=== PATIENT | female | born 1960 | race Caucasian/White ===

== ENCOUNTER 2019-09-09 23:10 | Emergency (ER) | payer BC | END 2019-09-09 23:39 | disposition left against medical advice (07) | LOC: ERS 23:10 | DX: Z53.21 Procedure and treatment not carried out due to patient leaving prior to being seen by health care provider (principal) ==

== ENCOUNTER 2019-11-28 07:43 | Outpatient (CLI) | payer BC ==
--- NOTE | 2019-11-28 08:06 | ULT ---
RIGHT UPPER QUADRANT ULTRASOUND CLINICAL HISTORY: Epigastric abdominal pain. COMPARISON: Prior CT the abdomen and pelvis dated September 10, 2019 FINDINGS: Liver:Normal echotexture without focal mass. Intrahepatic bile ducts: No intrahepatic or extrahepatic biliary dilation.; Common bile duct: 4.4 mm. Gallbladder: Numerous gallstones with mild gallbladder wall thickening. No pericholecystic fluid. Gupta's sign:None Main portal vein:Patent with hepatopedal flow. Pancreas:Visualized pancreas appears normal. Right kidney: Right kidney measures 10.3 x 5.5 x 6.2 cm. There are multiple peripelvic cysts in the r ight kidney, stable to the prior CT examination. One of the largest cyst measures 3.6 cm. No hydronephrosis. Additional findings: None. IMPRESSION: 1. Cholelithiasis with mild gallbladder wall thickening. No sonographic Gupta's sign or pericholecy stic fluid identified. Component of chronic cholecystitis cannot be entirely excluded. Recommend consideration for HIDA Scan. 2. Multiple right-sided peripelvic cysts.
== END 2019-11-28 07:44 | disposition home or self-care (01) ==
LOC: BICULT 07:43
PROVIDERS: ATTEND Physician Assistant Medical
DX: R10.13 Epigastric pain (principal); R11.0 Nausea; K80.20 Calculus of gallbladder without cholecystitis without obstruction; K82.8 Other specified diseases of gallbladder; N28.1 Cyst of kidney, acquired
CPT/HCPCS: 76705

== ENCOUNTER 2020-01-10 06:41 | Outpatient (CLI) | payer BC, OTHER ==
[2020-01-10 10:30] LABS: ALT (SGPT) 26 U/L (8-55); AST (SGOT) 21 U/L (5-34); Albumin 3.9 g/dL (3.4-4.8); Alkaline Phosphatase 160 U/L (40-110); Bilirubin, Direct 0.3 mg/dL (0.1-0.3); Bilirubin, Total 0.7 mg/dL (0.2-1.2)
[2020-01-10 18:14] LABS: SARS-CoV-2 MS2 Positive; SARS-CoV-2 N Gene Negative; SARS-CoV-2 S Gene Negative; SARS-CoV-2 by NAA Not Detected (NotDetected); SARS-CoV-2 orf1ab Negative
--- NOTE | 2020-01-13 17:20 | EKG ---
Test Reason : Blood Pressure : / mmHG Vent. Rate : 072 BPM Atrial Rate : 072 BPM P-R Int : 174 ms QRS Dur : 088 ms QT Int : 420 ms P-R-T Axes : 048 -16 -13 degrees QTc Int : 459 ms Normal sinus rhythm Voltage criteria for left ventricular hypertrophy Possible Lateral infarct , age undetermined Nonspecific ST-T changes Abnormal ECG No previous ECGs available Confirmed by DR. Jens SANDERS ([id number]) on 01/13/2020 5:20:09 PM Referred By: GLORIA Confirmed By:DR. Jens SANDERS
== END 2020-01-10 06:42 | disposition home or self-care (01) ==
LOC: LABBT 06:41
PROVIDERS: ATTEND Surgery
DX: Z01.818 Encounter for other preprocedural examination (principal); Z20.828 Contact with and (suspected) exposure to other viral communicable diseases; K80.20 Calculus of gallbladder without cholecystitis without obstruction
CPT/HCPCS: 87635; 93005; 93010; U0003

== ENCOUNTER 2020-01-14 05:55 | Day surgery (SDC) | payer BC ==
[2020-01-13 10:18] VITALS: BMI 40.8
[2020-01-14] MEDS ORDERED: cefOXitin Sodium/Dextrose 2 GM/50 ML BAG ONE (06:29)
[2020-01-14] MEDS ORDERED: Sodium Chloride 0.9% 0 ML ONE (06:29)
[2020-01-14] MEDS ORDERED: Bupivacaine 0.25% HCL 30 ML VIAL ONE (06:36)
[2020-01-14] MEDS ORDERED: Midazolam HCl 2 mg/2 ml Vial ONE (07:08)
[2020-01-14] MEDS ORDERED: Fentanyl 100 MCG/2 ML VIAL ONE ×3 (07:08→09:25)
[2020-01-14] MEDS ORDERED: HYDROcodone/Acetaminophen 5/325 mg Tablet ONE ×2 (10:20→15:02)
[2020-01-14] MEDS ORDERED: Morphine 2 MG/ML VIAL ONE ×3 (11:25→13:10)
--- NOTE | 2020-01-14 12:14 | OP ---
DATE OF PROCEDURE: 01/14/2020 PREOPERATIVE DIAGNOSIS: Symptomatic cholelithiasis. PROCEDURE PERFORMED: Laparoscopic cholecystectomy. 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 She is having epigastric and right upper quadrant pain. Ultrasound showed cholelithiasis. FINDINGS: Dense adhesions, very distended gallbladder, tiny little cystic duct, lot of adhesions. DESCRIPTION OF PROCEDURE: After informed consent was obtained, the patient was taken to the operating room. She was given general endotracheal anesthesia, placed in the supine position. Her abdomen was prepped and draped in usual fashion. A 5-mm incision was performed lateral on the right side. A Veress needle inserted, drop test performed. Pneumoperitoneum was created to a volume of 2 L of carbon dioxide. 0-degree laparoscope inserted under direct vision. Another 5 mm port was placed. Then using the LigaSure, laparoscopic lysis of adhesions was performed to free up the anterior abdominal wall. A 12 mm port was placed just above the umbilicus and then another 5-mm port placed subcostally. The gallbladder was encased in adhesions. We could find the top of it. This was grasped and adhesions were taken down sharply with Metzenbaum scissors and electrocautery. We eventually dissected the entire gallbladder down to a very tiny cystic duct, which was triply ligated and divided. The artery was triply ligated and divided and the gallbladder removed from its fossa utilizing electrocautery. It was placed in an Endosac and removed from the abdomen in an Endosac. Hemostasis was assured. Debbi powder was applied. The fascia closed with a 0 Vicryl suture and the GraNee needle. Trocars and retractors removed. Skin closed with interrupted 4-0 Rapide. Dermabond applied. The patient tolerated the procedure well and was transferred to Recovery in good condition. Sponge and needle count verified correct x2. Job ID: [id number]
[2020-01-14] MEDS ORDERED: PROPOFOL 200 MG/20 ML VIAL ONE (12:31)
[2020-01-14] MEDS ORDERED: Ondansetron PF 4 MG/2 ML Vial ONE (12:31)
[2020-01-14] MEDS ORDERED: Rocuronium Bromide 10 MG/ML (10ML VIAL) ONE (12:31)
[2020-01-14] MEDS ORDERED: Dexamethasone 20 MG/5 ML VIAL ONE (12:31)
[2020-01-14] MEDS ORDERED: Lidocaine 1% PF 5 ML VIAL ONE (12:31)
[2020-01-14] MEDS ORDERED: Ketorolac Tromethamine 30 MG/ML VIAL ONE (13:15)
[2020-01-14 13:55] LABS: #Lymphocytes 0.7 thou/uL (1.20-3.40); #Monocytes 0.2 thou/uL (0.11-0.59); #Neutrophils 8.1 thou/uL (1.40-6.50); %Basophils 0.2 % (0.0-1.0); %Eosinophils 0.1 % (0.0-10.0); %Lymphocytes 8.1 % (21.0-51.0); %Monocytes 2.3 % (0.0-10.0); %Neutrophils 89.3 % (42.0-75.0); Hemoglobin 12.9 g/dL (12.0-16.0); Mean Corpuscular HGB CONC 31.7 g/dL (32.0-36.0); Mean Corpuscular Hemoglobin 30.6 pg (27.0-31.0); Mean Corpuscular Volume 96.4 fL (78.0-98.0); Mean Platelet Volume 6.9 fL (7.4-10.4); Platelet Count 222 thou/uL (130-400); RBC Distribution Width 12.2 % (11.5-14.5); Red Blood Cell (RBC) Count 4.23 mill/uL (4.20-5.40); White Blood Cell (WBC) Count 9.1 thou/uL (4.8-10.8)
[2020-01-14 14:20] LABS: ALT (SGPT) 34 U/L (8-55); AST (SGOT) 43 U/L (5-34); Albumin 3.5 g/dL (3.4-4.8); Alkaline Phosphatase 141 U/L (40-110); Bilirubin, Direct 0.1 mg/dL (0.1-0.3); Bilirubin, Total 0.4 mg/dL (0.2-1.2)
== END 2020-01-14 15:18 | disposition home or self-care (01) ==
LOC: SDC 05:55
PROVIDERS: ATTEND Surgery
PROC: 0FT44ZZ Resection of Gallbladder, Percutaneous Endoscopic Approach (ICD-10-PCS; principal; 2020-01-14)
DX: K80.10 Calculus of gallbladder with chronic cholecystitis without obstruction (principal); K82.8 Other specified diseases of gallbladder; E11.9 Type 2 diabetes mellitus without complications; E78.00 Pure hypercholesterolemia, unspecified; F32.9 Major depressive disorder, single episode, unspecified; M19.90 Unspecified osteoarthritis, unspecified site; Z87.891 Personal history of nicotine dependence
CPT/HCPCS: 36415; 80076; 85025; 88304; J0694; J1100; J1885; J2250; J2270; J2405; J2704; J3010; J3490; S0020

== ENCOUNTER 2020-08-06 14:04 | Outpatient (CLI) | payer BC | END 2020-08-06 14:05 | disposition home or self-care (01) | LOC: BICMAMMO 14:04 | PROVIDERS: ATTEND Physician Assistant | DX: Z12.31 Encounter for screening mammogram for malignant neoplasm of breast (principal); M85.89 Other specified disorders of bone density and structure, multiple sites; Z98.890 Other specified postprocedural states | CPT/HCPCS: 77063; 77067; 77080 ==

== ENCOUNTER 2020-12-15 17:23 | Outpatient (CLI) | payer BC ==
[2020-12-15 18:27] LABS: Hemoglobin 13.4 g/dL (12.0-15.5); Mean Corpuscular HGB CONC 31.5 g/dL (32.0-36.0); Mean Corpuscular Hemoglobin 29.8 pg (27.0-33.0); Mean Corpuscular Volume 94.7 fl (81.6-98.3); Mean Platelet Volume 10.3 fl (7.4-10.4); Platelet Count 224 10x3/uL (150-450); RBC Distribution Width 12.5 % (11.5-14.5); Red Blood Cell (RBC) Count 4.49 10x6/uL (3.90-5.03); White Blood Cell (WBC) Count 5.8 10x3/uL (3.5-10.5)
[2020-12-15 18:37] LABS: Bilirubin Neg (Negative); Blood, Urine Negative (Negative); Clarity Slightly Cloudy (Clear); Glucose, Urine (Dipstick) Normal (Negative); Ketone, Urine Negative (Negative); Leukocyte Negative (Negative); Nitrite Negative (Negative); Protein, Urine (Dipstick) 15 mg/dl (Neg-Trace); Urobilinogen Normal mg/dL (Less than 2)
[2020-12-15 18:41] LABS: Anion Gap 16 mmol/L (10-20); BUN (Urea Nitrogen) 13 mg/dL (9.8-20.1); Calc. Creatinine Clearance 0 mL/min (70-130); Calcium 9.3 mg/dL (7.8-10.44); Carbon Dioxide 23 mmol/L (23-31); Chloride 106 mmol/L (98-107); Glucose 94 mg/dL (80-115); Potassium 4.3 mmol/L (3.5-5.1); Sodium 141 mmol/L (136-145)
[2020-12-15 18:53] LABS: Bacteria/HPF Rare-Few HPF (None Seen); Mucous/LPF 1+ LPF (<2+); RBC/HPF 0-3 HPF (0-3); Squamous Epithelial 0-3 HPF (0-3); Transitional Epithelial 0-3 HPF (None Seen); WBC/HPF 0-3 HPF (0-3)
[2020-12-15 19:01] LABS: INR-International Normal Ratio 0.9; PTT 19.1 sec (22.0-33.0); Prothrombin Time 9.9 sec (9.5-12.1)
[2020-12-16 18:59] LABS: SARS-CoV-2 PCR by NAA Not Detected (NotDetected)
== END 2020-12-15 17:24 | disposition home or self-care (01) ==
LOC: BICMAMMO 17:23 → LABBT 17:24
PROVIDERS: ATTEND Physician Assistant
DX: Z01.818 Encounter for other preprocedural examination (principal); Z20.822 Contact with and (suspected) exposure to COVID-19
CPT/HCPCS: 71046; 80048; 81001; 85027; 85610; 85730; 87086; 93005; 93010; U0003; U0005

== ENCOUNTER 2020-12-22 15:54 | Outpatient (CLI) | payer BC ==
[2020-12-23 08:07] LABS: SARS-CoV-2 PCR by NAA Not Detected (NotDetected)
== END 2020-12-22 15:55 | disposition home or self-care (01) ==
LOC: LABBT 15:54
PROVIDERS: ATTEND Urology
DX: Z01.812 Encounter for preprocedural laboratory examination (principal); N39.46 Mixed incontinence; N81.10 Cystocele, unspecified; K43.9 Ventral hernia without obstruction or gangrene; E66.01 Morbid (severe) obesity due to excess calories; Z68.41 Body mass index [BMI] 40.0-44.9, adult; Z20.822 Contact with and (suspected) exposure to COVID-19
CPT/HCPCS: U0003; U0005

== ENCOUNTER 2020-12-24 06:03 | Day surgery (SDC) | payer BC ==
[2020-12-22 10:38] VITALS: BMI 42.9
[2020-12-24] MEDS ORDERED: Neomycin-Polymyxin 1 ML AMP ONE (06:37)
[2020-12-24] MEDS ORDERED: Bupivacaine 0.25% HCL 30 ML VIAL ONE (06:37)
[2020-12-24] MEDS ORDERED: Midazolam HCl 2 mg/2 ml Vial ONE (06:40)
[2020-12-24] MEDS ORDERED: Fentanyl 100 MCG/2 ML VIAL ONE (07:20)
[2020-12-24] MEDS ORDERED: HYDROmorphone 2 MG/ML VIAL ONE (07:21)
[2020-12-24] MEDS ORDERED: Dexamethasone 20 MG/5 ML VIAL ONE (07:41)
[2020-12-24] MEDS ORDERED: Ondansetron PF 4 MG/2 ML Vial ONE (07:41)
[2020-12-24] MEDS ORDERED: Succinylcholine 200 MG/10 ml SYRINGE FS ONE (07:41)
[2020-12-24] MEDS ORDERED: ePHEDrine 50 MG/ML VIAL ONE (07:41)
[2020-12-24] MEDS ORDERED: Ketorolac Tromethamine 30 MG/ML VIAL ONE (07:41)
[2020-12-24] MEDS ORDERED: PHENYLEPHRINE-NS 100 MCG/ML 10 ML SYRINGE ONE (07:41)
[2020-12-24] MEDS ORDERED: PROPOFOL 200 MG/20 ML VIAL ONE (07:41)
[2020-12-24] MEDS ORDERED: Lidocaine 1% PF 5 ML VIAL ONE (07:41)
== END 2020-12-24 11:55 | disposition home or self-care (01) ==
LOC: SDC 06:03
PROVIDERS: ATTEND Urology
PROC: 01HY0MZ Insertion of Neurostimulator Lead into Peripheral Nerve, Open Approach (ICD-10-PCS; principal; 2020-12-24)
DX: N39.46 Mixed incontinence (principal); G25.81 Restless legs syndrome; I10 Essential (primary) hypertension; E78.5 Hyperlipidemia, unspecified; E11.9 Type 2 diabetes mellitus without complications; E66.9 Obesity, unspecified; Z68.41 Body mass index [BMI] 40.0-44.9, adult; Z79.899 Other long term (current) drug therapy; Z98.84 Bariatric surgery status
CPT/HCPCS: 76000; J0690; J1100; J1170; J1885; J2250; J2405; J2704; J3010; J3490; S0020

== ENCOUNTER 2020-12-29 12:50 | Outpatient (CLI) | payer BC ==
[2020-12-30 11:50] LABS: SARS-CoV-2 PCR by NAA Not Detected (NotDetected)
== END 2020-12-29 12:51 | disposition home or self-care (01) ==
LOC: LABBT 12:50
PROVIDERS: ATTEND Urology
DX: Z01.812 Encounter for preprocedural laboratory examination (principal); N39.46 Mixed incontinence; E66.01 Morbid (severe) obesity due to excess calories; N81.10 Cystocele, unspecified; K43.9 Ventral hernia without obstruction or gangrene; Z68.41 Body mass index [BMI] 40.0-44.9, adult; Z20.822 Contact with and (suspected) exposure to COVID-19
CPT/HCPCS: U0003; U0005

== ENCOUNTER 2020-12-31 09:41 | Day surgery (SDC) | payer BC ==
[2020-12-29 15:33] VITALS: BMI 45.8
[2020-12-31] MEDS ORDERED: ceFAZolin 2 GM/DEX 5% 100 ML BAG ONE (11:52)
[2020-12-31] MEDS ORDERED: Neomycin-Polymyxin 1 ML AMP ONE (13:31)
[2020-12-31] MEDS ORDERED: Bupivacaine 0.25% HCL 30 ML VIAL ONE (13:31)
[2020-12-31] MEDS ORDERED: Midazolam HCl 2 mg/2 ml Vial ONE (13:56)
[2020-12-31] MEDS ORDERED: HYDROmorphone 2 MG/ML VIAL ONE (13:56)
[2020-12-31] MEDS ORDERED: Fentanyl 100 MCG/2 ML VIAL ONE (13:56)
[2020-12-31] MEDS ORDERED: Ondansetron PF 4 MG/2 ML Vial ONE (14:40)
[2020-12-31] MEDS ORDERED: ePHEDrine 50 MG/ML VIAL ONE (14:40)
[2020-12-31] MEDS ORDERED: PROPOFOL 200 MG/20 ML VIAL ONE (14:40)
[2020-12-31] MEDS ORDERED: Lidocaine 1% PF 5 ML VIAL ONE (14:40)
[2020-12-31] MEDS ORDERED: PHENYLEPHRINE-NS 100 MCG/ML 10 ML SYRINGE ONE (14:40)
[2020-12-31] MEDS ORDERED: Dexamethasone 20 MG/5 ML VIAL ONE (14:40)
[2020-12-31] MEDS ORDERED: Succinylcholine 200 MG/10 ml SYRINGE FS ONE (14:40)
== END 2020-12-31 19:10 | disposition home or self-care (01) ==
LOC: SDC 09:41
PROVIDERS: ATTEND Urology
PROC: 0JH70BZ Insertion of Single Array Stimulator Generator into Back Subcutaneous Tissue and Fascia, Open Approach (ICD-10-PCS; principal; 2020-12-31)
PROC: 01HY0MZ Insertion of Neurostimulator Lead into Peripheral Nerve, Open Approach (ICD-10-PCS; principal; 2020-12-31)
DX: N39.41 Urge incontinence (principal); N32.81 Overactive bladder; Z79.899 Other long term (current) drug therapy
CPT/HCPCS: 71045; J1100; J1170; J2250; J2405; J2704; J3010; J3490; S0020

== ENCOUNTER 2021-03-18 18:12 | Emergency (ER) | payer BC ==
[2021-03-18 18:55] LABS: #Eosinphils 0.1 thou/uL (0.0-0.7); #Lymphocytes 1.9 thou/uL (1.20-3.40); #Monocytes 0.6 thou/uL (0.11-0.59); %Basophils 0.6 % (0.0-1.0); %Eosinophils 1.8 % (0.0-10.0); %Lymphocytes 28.7 % (21.0-51.0); %Monocytes 9.2 % (0.0-10.0); %Neutrophils 59.7 % (42.0-75.0); Hemoglobin 13.6 g/dL (12.0-16.0); Mean Corpuscular HGB CONC 32.4 g/dL (32.0-36.0); Mean Corpuscular Hemoglobin 31.5 pg (27.0-31.0); Mean Corpuscular Volume 97.3 fL (78.0-98.0); Mean Platelet Volume 6.7 fL (7.4-10.4); Platelet Count 370 thou/uL (130-400); RBC Distribution Width 12.7 % (11.5-14.5); Red Blood Cell (RBC) Count 4.32 mill/uL (4.20-5.40); White Blood Cell (WBC) Count 6.7 thou/uL (4.8-10.8)
[2021-03-18 18:59] LABS: Bilirubin Negative (Negative); Blood, Urine Trace (Negative); Clarity Clear (Clear); Glucose, Urine (Dipstick) Normal (Negative); Ketone, Urine Negative (Negative); Leukocyte 25 Leu/uL (Negative); Nitrite Negative (Negative); Protein, Urine (Dipstick) Negative (Neg-Trace); RBC/HPF 0-3 HPF (0-3); Specific Gravity, Urine 1.019 (1.002-1.036); Squamous Epithelial 0-3 HPF (0-3); Urobilinogen Normal mg/dL (Less than 2); pH, Urine 5.5 (5.0-9.0)
[2021-03-18 19:02] LABS: Bacteria/HPF 1+ HPF (None Seen)
[2021-03-18 19:21] LABS: ALT (SGPT) 39 U/L (8-55); AST (SGOT) 32 U/L (5-34); Albumin 3.9 g/dL (3.4-4.8); Alkaline Phosphatase 192 U/L (40-110); Anion Gap 15 mmol/L (10-20); BUN (Urea Nitrogen) 10 mg/dL (9.8-20.1); Bilirubin, Total 0.4 mg/dL (0.2-1.2); Calc. Creatinine Clearance 0 mL/min (70-130); Calcium 9.1 mg/dL (7.8-10.44); Carbon Dioxide 23 mmol/L (23-31); Chloride 108 mmol/L (98-107); Globulin 3.4 g/dL (2.4-3.5); Glucose 106 mg/dL (80-115); Potassium 4.8 mmol/L (3.5-5.1); Protein, Total 7.3 g/dL (5.8-8.1); Sodium 141 mmol/L (136-145)
[2021-03-18] MEDS ORDERED: Morphine 4 MG/ML VIAL ONE (19:59)
[2021-03-18] MEDS ORDERED: Ondansetron PF 4 MG/2 ML Vial ONE (20:02)
[2021-03-18] MEDS ORDERED: cefTRIAXone\\ROCEPHIN 2 GM VIAL ONE (20:02)
[2021-03-18] MEDS ORDERED: Ketorolac Tromethamine 30 MG/ML VIAL ONE (20:02)
== END 2021-03-18 22:11 | disposition home or self-care (01) ==
LOC: ERS 18:12
DX: N20.0 Calculus of kidney (principal)
CPT/HCPCS: 36415; 74176; 80053; 81003; 81015; 85025; 87077; 87086; 87186; 96365; 96375; J0696; J1885; J2270; J2405

== ENCOUNTER 2021-06-18 06:39 | Day surgery (SDC) | payer BC ==
[2021-06-16 09:02] VITALS: BMI 46.3
== END 2021-06-18 11:15 | disposition home or self-care (01) ==
LOC: SDC 06:39
PROVIDERS: ATTEND Internal Medicine
PROC: 0DBN8ZX Excision of Sigmoid Colon, Via Natural or Artificial Opening Endoscopic, Diagnostic (ICD-10-PCS; principal; 2021-06-18)
DX: Z12.11 Encounter for screening for malignant neoplasm of colon (principal); K63.5 Polyp of colon; K57.30 Diverticulosis of large intestine without perforation or abscess without bleeding; R74.8 Abnormal levels of other serum enzymes; E78.00 Pure hypercholesterolemia, unspecified; G25.81 Restless legs syndrome; K11.7 Disturbances of salivary secretion; Z87.891 Personal history of nicotine dependence; Z86.010 Personal history of colon polyps; Z80.0 Family history of malignant neoplasm of digestive organs; Z79.899 Other long term (current) drug therapy; Z98.84 Bariatric surgery status
CPT/HCPCS: 88305

== ENCOUNTER 2021-08-07 18:30 | Emergency (ER) | payer BC | END 2021-08-07 19:51 | LOC: ERS 18:30 | DX: S06.0X0A Concussion without loss of consciousness, initial encounter (principal); W22.8XXA Striking against or struck by other objects, initial encounter | CPT/HCPCS: 70450 ==

== ENCOUNTER 2023-01-10 01:29 | Emergency (ER) | payer BC ==
[2023-01-10] MEDS ORDERED: Lidocaine 1% MPF 2 ML VIAL ONE (02:58)
[2023-01-10] MEDS ORDERED: Boostrix 0.5 ML (Tdap) VIAL (>/=7 yrs of age) ONE (03:44)
== END 2023-01-10 04:00 | disposition home or self-care (01) ==
LOC: ERS 01:29
DX: S61.211A Laceration without foreign body of left index finger without damage to nail, initial encounter (principal); E11.9 Type 2 diabetes mellitus without complications; Z79.899 Other long term (current) drug therapy; W26.9XXA Contact with unspecified sharp object(s), initial encounter
CPT/HCPCS: 12001; 90471; 90715

== ENCOUNTER 2023-06-09 20:48 | Emergency (ER) | payer MEDICARE, BC ==
[2023-06-09 21:54] LABS: Bacteria/HPF None Seen HPF (None Seen); Bilirubin Negative (Negative); Blood, Urine 3+ (Negative); CAUTI Indications for Culture Pelvic or flank pain; Clarity Clear (Clear); Glucose, Urine (Dipstick) Normal (Negative); Ketone, Urine 20 mg/dL (Negative); Leukocyte Negative Leu/uL (Negative); Nitrite Negative (Negative); Protein, Urine (Dipstick) 20 mg/dL (Neg-Trace); RBC/HPF Greater than 50 HPF (0-3); Squamous Epithelial 0-3 HPF (0-3); Urobilinogen Normal mg/dL (Less than 2); WBC/HPF 0-3 HPF (0-3); pH, Urine 5.5 (5.0-9.0)
[2023-06-09 21:55] LABS: Urine Culture Reflex No No
[2023-06-09 22:24] LABS: #Eosinphils 0.1 thou/uL (0.0-0.7); #Monocytes 0.6 thou/uL (0.11-0.59); #Neutrophils 3.8 thou/uL (1.40-6.50); %Basophils 0.5 % (0.0-1.0); %Eosinophils 1.1 % (0.0-10.0); %Lymphocytes 29.4 % (21.0-51.0); %Monocytes 9.4 % (0.0-10.0); %Neutrophils 59.4 % (42.0-75.0); Hematocrit 43.7 % (36.0-47.0); Hemoglobin 14.5 g/dL (12.0-16.0); Mean Corpuscular HGB CONC 33.2 g/dL (32.0-36.0); Mean Corpuscular Hemoglobin 31.6 pg (27.0-31.0); Mean Corpuscular Volume 95.2 fl (78.0-98.0); Mean Platelet Volume 9.8 fL (7.4-10.4); Platelet Count 220 10x3/uL (130-400); RBC Distribution Width 13.1 % (11.5-14.5); Red Blood Cell (RBC) Count 4.59 mill/uL (4.20-5.40); White Blood Cell (WBC) Count 6.5 10x3/uL (4.8-10.8)
[2023-06-09 22:43] LABS: Chloride 106 mmol/L (98-107); Potassium 4.1 mmol/L (3.5-5.1); Sodium 139 mmol/L (136-145)
[2023-06-09 23:31] LABS: ALT (SGPT) 63 U/L (8-55); AST (SGOT) 31 U/L (5-34); Albumin 4.1 g/dL (3.4-4.8); Alkaline Phosphatase 121 U/L (40-110); BUN (Urea Nitrogen) 20 mg/dL (9.8-20.1); Bilirubin, Total 0.6 mg/dL (0.2-1.2); Calc. Creatinine Clearance 0 mL/min (70-130); Carbon Dioxide 21 mmol/L (23-31); Estimated GFR 66; Globulin 2.3 g/dL (2.4-3.5); Glucose 97 mg/dL (80-115); Lipase 26 U/L (8-78); Protein, Total 6.4 g/dL (5.8-8.1)
[2023-06-09 23:44] LABS: Anion Gap 16 mmol/L (10-20)
== END 2023-06-10 01:02 | disposition home or self-care (01) ==
LOC: ERS 20:48
DX: N13.2 Hydronephrosis with renal and ureteral calculous obstruction (principal); R31.29 Other microscopic hematuria; E11.9 Type 2 diabetes mellitus without complications
CPT/HCPCS: 36416; 74176; 80053; 81001; 83690; 85025

== ENCOUNTER 2023-08-29 07:40 | Outpatient (CLI) | payer BC | END 2023-08-29 07:41 | disposition home or self-care (01) | LOC: BICULT 07:40 | PROVIDERS: ATTEND Nurse Practitioner Family | DX: R74.8 Abnormal levels of other serum enzymes (principal); N28.1 Cyst of kidney, acquired | CPT/HCPCS: 76705 ==

== ENCOUNTER 2023-10-06 14:48 | Outpatient (CLI) | payer BC | END 2023-10-06 14:49 | disposition home or self-care (01) | LOC: BICULT 14:48 | PROVIDERS: ATTEND Nurse Practitioner Family | DX: E04.2 Nontoxic multinodular goiter (principal) | CPT/HCPCS: 76536 ==

== ENCOUNTER 2024-01-04 14:05 | Outpatient (CLI) | payer MEDICARE | END 2024-01-04 14:06 | disposition home or self-care (01) | LOC: BICMAMMO 14:05 | PROVIDERS: ATTEND Nurse Practitioner Family | DX: Z78.0 Asymptomatic menopausal state (principal); M81.0 Age-related osteoporosis without current pathological fracture | CPT/HCPCS: 77080 ==

== ENCOUNTER 2024-05-03 13:22 | Outpatient (CLI) | payer MEDICARE ==
[2024-05-03 14:49] LABS: #Basophils 0.03 10x3/uL (0.0-0.2); %Basophils 0.6 % (0.0-1.0); %Eosinophils 2.6 % (0.0-10.0); %Lymphocytes 34.6 % (21.0-51.0); %Monocytes 7.7 % (0.0-10.0); %Neutrophils 54.3 % (42.0-75.0); Hemoglobin 13.2 g/dL (12.0-16.0); Mean Corpuscular HGB CONC 31.4 g/dL (32.0-36.0); Mean Corpuscular Hemoglobin 31.1 pg (27.0-31.0); Mean Corpuscular Volume 98.8 fL (78.0-98.0); Mean Platelet Volume 9.7 fL (7.4-10.4); Platelet Count 207 10x3/uL (130-400); RBC Distribution Width 12.7 % (11.5-14.5); Red Blood Cell (RBC) Count 4.25 mill/uL (4.20-5.40)
[2024-05-03 15:11] LABS: Anion Gap 15 mmol/L (10-20); BUN (Urea Nitrogen) 26 mg/dL (9.8-20.1); Calc. Creatinine Clearance 0 mL/min (70-130); Calcium 9.4 mg/dL (7.8-10.44); Carbon Dioxide 32 mmol/L (23-31); Chloride 101 mmol/L (98-107); Estimated GFR 59; Glucose 111 mg/dL (80-115); Potassium 3.7 mmol/L (3.5-5.1); Sodium 144 mmol/L (136-145)
== END 2024-05-03 13:23 | disposition home or self-care (01) ==
LOC: LABBT 13:22
PROVIDERS: ATTEND Orthopaedic Surgery Hand Surgery
DX: Z01.818 Encounter for other preprocedural examination (principal); G56.21 Lesion of ulnar nerve, right upper limb; G56.01 Carpal tunnel syndrome, right upper limb; G56.11 Other lesions of median nerve, right upper limb; M25.839 Other specified joint disorders, unspecified wrist; S52.501P Unspecified fracture of the lower end of right radius, subsequent encounter for closed fracture with malunion
CPT/HCPCS: 80048; 85025; 93005; 93010

== ENCOUNTER 2025-01-23 10:15 | Outpatient (CLI) | payer MEDICARE | END 2025-01-23 10:16 | disposition home or self-care (01) | LOC: ULT 10:15 | PROVIDERS: ATTEND Internal Medicine | DX: R74.01 Elevation of levels of liver transaminase levels (principal); R16.0 Hepatomegaly, not elsewhere classified; K76.0 Fatty (change of) liver, not elsewhere classified; Z90.49 Acquired absence of other specified parts of digestive tract | CPT/HCPCS: 76705 ==